=== PATIENT | female | born 1955 | race Caucasian/White ===

== ENCOUNTER → 2023-12-13 14:31 | Outpatient (REF) | payer MEDICARE, SELFPAY | LOC: HWRAD 14:31 | PROVIDERS: ATTENDING PHYSICIAN Chiropractor; FAMILY PHYSICIAN Family Medicine | DX: M99.01 Segmental and somatic dysfunction of cervical region (principal); M54.12 Radiculopathy, cervical region; M62.40 Contracture of muscle, unspecified site; M53.2X7 Spinal instabilities, lumbosacral region; M99.03 Segmental and somatic dysfunction of lumbar region | CPT/HCPCS: 72052; 72070; 72110 ==

== ENCOUNTER 2024-08-07 08:25 | Emergency (ER) | payer MEDICARE, OTHER, SELFPAY ==
[2024-08-07 08:45] VITALS: BP 150/90
--- NOTE | 2024-08-07 09:12 | ED.GENMED ---
History of Present Illness
General
Chief Complaint: Abdominal Pain
Source: patient
Time Seen by Provider: 08/07/24 09:04
History of Present Illness
History of Present Illness:
68-year-old female presents to the emergency room complaining of decreased appetite, right lower abdominal pain. Symptoms began 2 to 3 days ago. She initially began experiencing anorexia and some nausea. She eventually vomited and developed right
lower quadrant abdominal pain. She also feels bloated. Nothing seems to make the pain better or worse. Patient has had her gallbladder removed. She denies any dysuria or frequency. She also noted some low back pain over the past week or so.
Unclear if this is related. The back pain persists. This is somewhat worsened by movement.
Phy Exam
Physical Exam
Physical Exam:
General: Awake, Alert, Oriented X3. No acute distress.
Vitals: unremarkable
Head: Atraumatic
Eyes: Pupils equal, EOMI
Throat: Airway intact, no exudates
Neck: Trachea midline
Lungs: Clear and equal b/l
Heart: Regular rate, no murmurs
Abd: Soft, tender to palpation right lower quadrant, no pulsatile mass
Back: No CVA tenderness to percussion
Neuro: Nonfocal
Skin: Warm, dry, no rash
Extremities: pulses equal b/l, no edema
Course
Orders/Labs/Results
Orders:
Orders
08/07/24 09:09
Complete Blood Count/With Diff Urgent
Comprehensive Metabolic Panel Urgent
Lipase Urgent
0.9% Sodium Chloride 1000 ml [Nss] 1,000 ml IV BOLUS
Ketorolac [Toradol] 15 mg IV NOW STA
Ondansetron Injectable [Zofran] 4 mg IV NOW STA
08/07/24 09:18
CT Abd/pel W Iv And Oral Contr Urgent
Comment:
Reason For Exam: rlq abd pain
Iohexol [Omnipaque] See Protocol PO NOW STA
08/07/24 11:50
Urinalysis Reflex To Culture Routine
Urine Microscopic Reflex Cult Routine
Abnormal Lab Results
08/07/24 08/07/24
09:09 11:50
MPV 10.7 H fL
(7.4-10.4)
Absolute Lymphs (auto) 0.9 L 10^3/uL
(1.2-3.4)
Lymphocytes % 16.9 L %
(20.5-51.1)
Monocytes % 11.0 H %
(1.7-9.3)
Glucose 109 H mg/dl
(70-99)
Urine Ketones 1+ A
(Negative)
Ur Occult Blood Reflex 1+ A
(Negative)
Urine Bacteria (Reflex) Few A
(Negative)
08/07/24 09:09
08/07/24 09:09
Vital Signs
Initial and Last Documented VS:
Initial Vital Signs
Temp Pulse Resp BP Pulse Ox
98.6 F 87 16 150/90 98
08/07/24 08:45 08/07/24 08:45 08/07/24 08:45 08/07/24 08:45 08/07/24 08:45
Last Documented Vital Signs
Temp Pulse Resp BP Pulse Ox
98.6 F 87 16 158/71 98
08/07/24 08:45 08/07/24 08:45 08/07/24 08:45 08/07/24 11:15 08/07/24 11:45
MDM/Problems Addressed
Differential Diagnosis Includes:
Appendicitis, mesenteric adenitis, viral syndrome, choledocholithiasis
MDM/Problems Addressed:
Patient presents with abdominal pain which she indicates to be in the lower abdomen. She had some mild tenderness palpation prompting further investigation. CBC and CMP are all reassuring. Urinalysis does not indicate any significant abnormality.
She is to the abdomen and pelvis shows postcholecystectomy changes without any other acute pathology. Patient stable for discharge home
*Radiology
Radiology exam reviewed: radiology read reviewed
*Pulse Oximetry
Patient hypoxic: no
*Critical Care Note
Total Time (30-74mins, 75-104mins- exclusive of procedures): Not Applicable
ED Attending Note
-
Portions of this chart may have been created with voice recognition software.� Occasional wrong word or��sound alike� substitutions may have occurred due to the inherent limitations of voice recognition software.
Discharge Plan
Departure
Patient Disposition: Home (Routine Discharge)
Date of Disposition: 08/07/24
Time of Disposition: 13:26
Patient with high blood pressure during this ER visit?: No
Condition: Good
Discharge Problem:
Abdominal pain
Instructions: Abdominal Pain
Referrals:
Koko Jasso MD [Family Provider] -
Activity Restrictions/Additional Instructions:
Your laboratory studies and CAT scan here are normal. There is no evidence for an unstable process. I suspect your abdominal discomfort may be more related to a GI bug. Follow-up with your family doctor and certainly return to the emergency room
if you are feeling worse or have any concerns.
Interventions
Interventions:
*Risk Screen - Suicide Last Done: 08/07/24 08:45
*General Assessment Last Done: 08/07/24 09:47
*Neglect/Abuse Screening Last Done: 08/07/24 08:45
*ED- Fall Risk Assessment Last Done: 08/07/24 09:47
*ED COVID-19 Vaccine History Last Done: 08/07/24 09:47
*Nursing Disposition Last Done: 08/07/24 13:34
RA-Dgibbs-Atembuvhhf Assessment Last Done: 08/07/24 09:47
Discharge Date and Time
Discharge Date/Time: 08/07/24 13:35
Print Language: [id number]
[2024-08-07 09:14] VITALS: BMI 22.5
[2024-08-07] MEDS: ZOFRAN 4 MG IV (09:31)
[2024-08-07] MEDS: NSS 1000 IV (09:31)
[2024-08-07] MEDS: OMNIPAQUE 50 ML PO (09:31)
[2024-08-07] MEDS: TORADOL 15 MG IV (09:32)
[2024-08-07 09:33] LABS: % Basophils 0.2 % (0-2); % Eosinophils 0.2 % (0-6); % Immature Granulocytes 0.4 % (0-0.5); % Lymphocytes 16.9 % (20.5-51.1); % Neutrophils 71.3 % (42.2-75.2); Absolute Lymphocytes 0.9 10^3/uL (1.2-3.4); Absolute Monocytes 0.6 10^3/uL (0.1-0.6); Absolute Neutrophils 3.7 10^3/uL (1.4-6.5); Hematocrit 43.2 % (37.0-47.0); Hemoglobin 14.5 g/dL (12.0-16.0); Mean Corp Hgb Conc. 33.6 g/dL (33.0-37.0); Mean Corpuscular Hgb 30.2 pg (27.0-31.0); Mean Platelet Volume 10.7 fL (7.4-10.4); Nucleated Red Blood Cells % 0 %; Platelet Count 146 10^3/uL (130-400); Red Cell Dist. Width 13.2 % (11.5-14.5); White Blood Cell Count 5.2 10^3/uL (4.8-10.8)
[2024-08-07 09:41] LABS: ALT (SGPT) 33 U/L (0-35); AST (SGOT) 32 U/L (14-36); Albumin 4.1 g/dl (3.5-5.0); Alkaline Phosphatase 71 U/L (38-126); Blood Urea Nitrogen 16 mg/dl (7-17); Carbon Dioxide 28 mmol/L (22-30); Chloride 101 mmol/L (98-107); Estimated Creatinine Clearance 64 ml/min; Glucose 109 mg/dl (70-99); Lipase 53 U/L (23-300); Potassium 3.8 mmol/L (3.5-5.1); Sodium 138 mmol/L (135-145); Total Bilirubin 0.7 mg/dl (0.2-1.3); Total Protein 6.7 g/dl (6.3-8.2); eGFR > 60.00
[2024-08-07 11:15] VITALS: BP 158/71
[2024-08-07 12:10] LABS: Urine Albumin Negative (Neg - Trace); Urine Bilirubin Negative (Negative); Urine Character Clear (Clear); Urine Color Yellow; Urine Glucose Negative (Negative); Urine Ketone 1+ (Negative); Urine Leukocyte Negative (Negative); Urine Nitrite Negative (Negative); Urine Occult Blood 1+ (Negative); Urine Urobilinogen Negative (Neg - 1+)
[2024-08-07 12:35] LABS: Urine Red Blood Cell 0-2 /HPF (0-2); Urine Squamous Cell >30 /LPF (Few); Urine White Cell 0-2 /HPF (0-5)
[2024-08-07 12:36] LABS: Urine Bacteria Few (Negative)
== END 2024-08-07 13:35 | disposition home or self-care (01) ==
LOC: EMR 08:25
PROVIDERS: EMERGENCY PHYSICIAN Emergency Medicine; FAMILY PHYSICIAN Family Medicine
DX: R10.31 Right lower quadrant pain (principal); R63.0 Anorexia; R11.2 Nausea with vomiting, unspecified; M54.50 Low back pain, unspecified; Z90.49 Acquired absence of other specified parts of digestive tract
CPT/HCPCS: 99284; 96375; 96361; 96374; 74177; 80053; 81003; 81015; 83690; 85025; Q9967